=== PATIENT | female | born 1990 | race Two or more races ===

== ENCOUNTER 2020-09-21 22:22 | Emergency (ER) | payer SELFPAY ==
[~2020-09-21] VITALS: Ht 157.5 cm; Wt 81.8 kg
[2020-09-21 22:23] VITALS: BP 127/81
== END 2020-09-22 | disposition left against medical advice (07) ==
LOC: EMS 22:34
DX: Z00.00 Encounter for general adult medical examination without abnormal findings (principal); Z53.21 Procedure and treatment not carried out due to patient leaving prior to being seen by health care provider